=== PATIENT | male | born 1980 | race Asian ===

== ENCOUNTER → 2017-10-20 | Outpatient (CLI) | payer OTHER ==
--- NOTE | 2017-10-20 15:12 | DIAGNOSTIC IMAGING REPORT ---
TESTICULAR ULTRASOUND HISTORY: Left testicular pain. COMPARISON: Testicular ultrasound 12/13/2013. FINDINGS: Right testis: 4.0 x 3.0 x 2.4 cm. There are no intratesticular masses. Normal color flow. No significant hydrocele. The epididymis is unremarkable. Left testis: 3.8 x 2.7 x 2.1 cm. There are no intratesticular masses. Normal color flow. No significant hydrocele. The epididymis is unremarkable. Left-sided varicocele is again noted. IMPRESSION: 1. Normal bilateral testes. 2. Left-sided varicocele is again noted. Electronically signed by: Benigno Crow M.D. 10/20/2017 3:11 PM Dictated Date/Time: 10/20/2017 3:09 PM
== END | disposition home or self-care (01) ==
LOC: C.ULTR 14:04
PROVIDERS: ATTEND Family Medicine
DX: N50.812 Left testicular pain (principal); I86.1 Scrotal varices